=== PATIENT | male | born 1950 | race Caucasian/White ===

== ENCOUNTER 2017-10-04 20:43 | Emergency (ER) | payer OTHER, MEDICAID ==
[~2017-10-04] VITALS: Ht 172.7 cm; Wt 90.7 kg
[2017-10-04 20:53] VITALS: BP 150/90
--- NOTE | 2017-10-04 20:55 | NUR ---
TO LOBBY, A/W BED, AMBULATORY, VSS ERMD NOTED
--- NOTE | 2017-10-04 21:43 | NUR ---
NECK PAIN, FOR 5 DAYS, NO TRAUMA NOR INJURY. PAIN 8/10 ACHING. PT UNABLE TO ROTATE HEAD AT ALL. A/O X 4 AND PUILS 3MM PERRLA
--- NOTE | 2017-10-04 21:53 | NUR ---
PT C/O NECK PAIN X 5 DAYS, PER DAUGHTER. PT HAS MEDICAL HX: HTN/DM
[2017-10-04] MEDS ORDERED: HYDROcodone/APAP 10/325 MG 1 TAB TAB PO STA (23:13)
[2017-10-04] MEDS ORDERED: CYCLOBENZAPRINE 10 MG TAB PO ONE (23:15)
[2017-10-04] MEDS ORDERED: KETOROLAC 30 MG/ML VIAL IM ONE (23:15)
[2017-10-05 02:21] VITALS: BP 127/67
--- NOTE | 2017-10-05 02:21 | NUR ---
Patient discharged with v/s stable. Written and verbal after care instructions given and explained. Patient alert, oriented and verbalized understanding of instructions. Ambulatory with steady gait. All questions addressed prior to discharge. ID band removed. Patient advised to follow up with PMD. Rx of FLEXERIL,IBUPROFEN,AND NORCO given. Patient educated on indication of medication including possible reaction and side effects. Opportunity to ask questions provided and answered.
== END 2017-10-05 02:21 | disposition home or self-care (01) ==
LOC: MED 20:43
DX: M50.321 Other cervical disc degeneration at C4-C5 level (principal); E11.9 Type 2 diabetes mellitus without complications; I10 Essential (primary) hypertension
CPT/HCPCS: 72125; 96372; 99284; J1885